=== PATIENT | female | born 1970 | race Caucasian/White ===

== ENCOUNTER 2020-01-07 19:24 | Emergency (ER) | payer BC ==
[~2020-01-07] VITALS: Ht 162.6 cm; Wt 84.4 kg
[2020-01-07] MEDS ORDERED: ACETAMINOPHEN 325 MG TAB PO STA (19:52)
--- NOTE | 2020-01-07 19:52 | Emergency Department Note ---
History of Present Illnes History of Present Illness Chief Complaint: COVID PUI History of Present Illness This is a 50 year old female presents to the ED for presumed allergic rhinitus which started last week and progressed to chills , myalgias with non-productive cough. Onset (how long ago): week(s) Radiation: Reports non-radiation Severity: moderate Duration (how long): week(s) (1) Timing of current episode: constant Progression: worsening Context: Reports recent illness Associated symptoms: Reports cough, Reports fever/chills, Reports malaise Treatments prior to arrival: none Past Medical/Family History Physician Review I have reviewed the patient's past medical and family history. Any updates have been documented here. Past Medical History Recent Fever: Yes Clinical Suspicion of Infectio: Yes New/Unexplained Change in Ment: No Past Medical History: None Past Surgical History: None Social History Smoking Cessation: Never Smoker Alcohol Use: None Any Illegal Drug Use: No Review of Systems Review of Systems Constitutional: Reports chills, Reports malaise EENTM: Reports no symptoms Cardiovascular: Reports no symptoms Respiratory: Reports cough Gastrointestinal: Reports no symptoms Genitourinary: Reports no symptoms Musculoskeletal: Reports no symptoms Integumentary: Reports no symptoms Neurological: Reports no symptoms Psychological: Reports no symptoms Endocrine: Reports no symptoms Hematological/Lymphatic: Reports no symptoms Physical Exam Related Data Allergies: Coded Allergies: No Known Allergies (Unverified , 01/07/20) Vital signs reviewed: Yes Physical Exam CONSTITUTIONAL Constitutional: Present ill appearing HENT HENT: Present normocephalic, Present atraumatic, Present oropharynx clear /moist, Present nose normal HENT L/R: Present left ext ear normal, Present right ext ear normal EYES Eyes: Reports PERRL, Reports conjunctivae normal NECK Neck: Present ROM normal PULMONARY Pulmonary: Present effort normal, Present breath sounds normal CARDIOVASCULAR Cardiovascular: Present regular rhythm, Present heart sounds normal, Present capillary refill normal, Present normal rate GASTROINTESTINAL Abdominal: Present soft, Present nontender, Present bowel sounds normal GENITOURINARY Genitourinary: Present exam deferred SKIN Skin: Present warm, Present dry MUSCULOSKELETAL Musculoskeletal: Present ROM normal NEUROLOGICAL Neurological: Present alert, Present oriented x 3, Present no gross motor or sensory deficits PSYCHOLOGICAL Psychological: Present mood/affect normal, Present judgement normal Results Imaging Imaging results reviewed: Yes Impressions [facility] [address] Patient Name: KAMILLE PATE MR #: [id number] : 1970 Age/Sex: 50/F Req #: [id number] Adm Physician: Ordered by: ELKIN AMAYA DO Report #: [id number] Location: ER Room/Bed: Procedure: [id number] DX/CHEST SINGLE (PORTABLE) Exam Date: 01/07/20 Exam Time: 2044 REPORT STATUS: Signed EXAMINATION: CHEST SINGLE (PORTABLE) INDICATION: ^Y ^COugh ^[id number] ^2044 Trouble breathing, fe COMPARISON: None FINDINGS: TUBES and LINES: None. LUNGS: Normal lung volumes. Subtle peripheral lung haziness. No consolidations. PLEURA: No pleural effusion or pneumothorax. HEART AND MEDIASTINUM: The cardiomediastinal silhouette is unremarkable. BONES AND SOFT TISSUES: No acute osseous lesion. Soft tissues are unremarkable. UPPER ABDOMEN: No free air under the diaphragm. IMPRESSION: Subtle peripheral lung haziness, pneumonia is possible. The haziness could be due to artifactual due to low lung volumes patient body habitus and single frontal view. Signed by: Cisco Tarango DO on 01/07/2020 9:52 PM Dictated By: CISCO TARANGO DO 51 Transcribed By: CECILIO on 01/07/202151 COPY TO: ELKIN AMAYA DO~ Assessment & Plan Medical Decision Making MDM Diff Dx : COVID-19 PUI, URI, PNA Assessment & Plan Final Impression: (1) Pneumonia Depart Disposition: HOME, SELF-CARE ELKIN AMAYA DO Jan 07, 2020 19:52
--- NOTE | 2020-01-07 19:59 | NUR ---
Patient medicated with Tylenol 975 mg po for 102.5 F, however, unable to document as pharmacy states "needs allergies." Attention pharmacy: the patient has NKA as documented in [facility].
[2020-01-07] MEDS ORDERED: ACETAMINOPHEN 325 MG TAB ONE (20:05)
[2020-01-07] MEDS ORDERED: ONDANSETRON HCL 4 MG ORAL DISINTEGRATING TAB PO ONE (20:30)
[2020-01-07] MEDS ORDERED: ONDANSETRON HCL 4 MG ORAL DISINTEGRATING TAB ONE (20:33)
[2020-01-07 21:09] VITALS: BP 121/80
--- NOTE | 2020-01-07 21:55 | Diagnostic Imaging Report ---
EXAMINATION: CHEST SINGLE (PORTABLE) INDICATION: ^Y ^COugh ^[id number] ^2044 Trouble breathing, fe COMPARISON: None FINDINGS: TUBES and LINES: None. LUNGS: Normal lung volumes. Subtle peripheral lung haziness. No consolidations. PLEURA: No pleural effusion or pneumothorax. HEART AND MEDIASTINUM: The cardiomediastinal silhouette is unremarkable. BONES AND SOFT TISSUES: No acute osseous lesion. Soft tissues are unremarkable. UPPER ABDOMEN: No free air under the diaphragm. IMPRESSION: Subtle peripheral lung haziness, pneumonia is possible. The haziness could be due to artifactual due to low lung volumes patient body habitus and single frontal view. Signed by: Cisco Tarango DO on 01/07/2020 9:52 PM
== END 2020-01-07 21:15 | disposition home or self-care (01) ==
LOC: ER 19:36
DX: J18.9 Pneumonia, unspecified organism (principal); R05 Cough; M79.10 Myalgia, unspecified site
CPT/HCPCS: 71045; 99283; Q0162

== ENCOUNTER 2020-01-10 12:50 | Emergency (ER) | payer BC ==
[~2020-01-10] VITALS: Ht 162.6 cm; Wt 84.4 kg
== END 2020-01-10 14:11 | disposition home or self-care (01) ==
LOC: ER 12:56
DX: U07.1 COVID-19 (principal); E03.9 Hypothyroidism, unspecified; K21.9 Gastro-esophageal reflux disease without esophagitis
CPT/HCPCS: 94760; 99282